=== PATIENT | male | born 1940 | race Caucasian/White ===

== ENCOUNTER 2016-11-28 14:42 | Observation (INO) ==
[2016-11-28 15:08] LABS: Basophils % 0.1 % (0.0-0.8); Eosinophils # 0.2 10*3/uL (0.0-0.87); Eosinophils % 2.8 % (0.00-10.9); Hematocrit 38.4 VOL% (42.0-52.0); Hemoglobin 12.9 GM/DL (14.0-18.0); Immature Granulocytes % 0.5 %; Immature Granulocytes Absolute 0.04 #; Lymphocytes # 2.4 10*3/uL (1.4-4.0); Lymphocytes % 31.6 % (21.2-54.2); Mean Corpuscular HGB Conc 33.6 GM/DL (32-36); Mean Corpuscular Hemoglobin 31 PG (27-34); Mean Corpuscular Volume 93.2 FL (87-102); Mean Platelet Volume 9.3 FL (9.6-12.0); Monocytes # 0.5 10*3/uL (0.11-0.8); Monocytes % 7.1 % (1.7-12.7); Neutrophils # 4.4 10*3/uL (1.4-7.4); Neutrophils % 57.9 % (38.7-73.9); Platelet Count 131 T/CUMM (130-400); Red Blood Count 4.12 MC/CUMM (3.8-5.5); White Blood Count 7.5 T/CUMM (4-12)
[2016-11-28 15:22] LABS: INR 1.1; PT Patient Result 11.9 SECS; Partial Thromboplastin Time 28.9 SECS (0-40)
[2016-11-28 15:29] LABS: Albumin 3.7 G/DL (3.4-5.0); Bilirubin,Total 0.8 MG/DL (0.2-1.0); Calcium 8.8 MG/DL (8.5-10.1); Magnesium 2.4 MG/DL (1.8-2.4); Potassium 4.1 MMOL/L (3.5-5.1); Total Protein 6.9 G/DL (6.4-8.3)
--- NOTE | 2016-11-28 16:10 | XRay Report ---
Exam: Chest 2 views Date: November 28, 2016 at 3:41 PM Comparison: Chest 2 views September 21, 2016, CT chest August 13, 2016 Reason: Chest pain Findings: The cardiac silhouette is again enlarged. There are a few calcified granulomas and minimal scarring within both lungs. Please see the previous CT chest study for further details. No focal consolidation, pneumothorax or pleural effusion is identified. No acute osseous process is seen. Impression: 1. Cardiomegaly. 2. No acute pulmonary process is identified. PROCEDURE INTERPRETED AT [facility] Final Report Signed by: Dr. Shweta Barksdale
[2016-11-28] MEDS ORDERED: ASPIRIN 325 MG TABLET PO STA (16:19)
[2016-11-28] MEDS ORDERED: NITROGLYCERIN SL 0.4 MG TABLET SL PRN (16:19)
[2016-11-28] MEDS ORDERED: ENOXAPARIN 100 MG/ML SYRINGE SUBCUT STA (16:19)
[2016-11-28] MEDS ORDERED: ENOXAPARIN 100 MG/ML SYRINGE SUBCUT ONE (16:21)
--- NOTE | 2016-11-28 16:37 | Emergency Department Note ---
Clifton Rivas Gwan, am scribing for, and in the presence of, Rj Schmidt MD 16:27. Brayan Rivas Phillip K, MD, personally performed the services described in this documentation, ascribed by Funmilayo Lazo in my presence, and it is both accurate and complete [id number] . Arrival - Arrival Chief Complaint: Chest Pain Stated Complaint: chest pain ED Nursing Triage Note: Pt c/o Chest pain with SOB started at 0500 this am. He took 2 NTG with relief but the pain has started coming back. Mode of Arrival: Wheelchair Limitations: No Limitations Source: Patient, Old Records Reviewed, RN Notes Reviewed Time Seen by Provider: 11/28/16 16:11 - History of Present Illness HPI Narrative: Patient is a 76 y/o whit male who presents to the ED with a c/o sharp left sided chest pain and SOB with an onset 0500 this morning. He noted that this pain is worse than the pain he has had in the past with previous heart problems. Patient stated that this pain woke him up form sleep and he administered on NTG with no relief. He continued to note that he waited 15 minutes and took another NTG with significant relief. He confirmed that he is being followed by Dr. Barajas, that his last stent was placed 04/2016 and that he was last seen in office 08/2016 with negative results. He denies N/V or any hx of blood clots. During exam, pt stated that he is not having any chest pain. Onset (ago): hour(s) Consistency: constant Severity: moderate Allergies/Adverse Reactions: Allergies Allergy/AdvReac Type Severity Reaction Status Date / Time No Known Allergies Allergy Verified 10/31/14 17:06 Home Medications: Home Medications Medication Instructions Recorded Confirmed Type Aspirin EC Tab 81 mg PO DAILY 10/31/14 11/28/16 History Nitroglycerin Sl Tab [Nitrostat] 0.4 mg SL Q5M 10/31/14 11/28/16 History Furosemide 40 mg PO BID #60 tablet 11/02/14 11/28/16 Rx Clopidogrel [Plavix] 75 mg PO DAILY 05/03/16 11/28/16 History Insulin Degludec [Tresiba 50 unit SUBCUT BEDTIME 05/03/16 11/28/16 History Flextouch U-100] Liraglutide [Victoza 2-Ben] 1.8 mg SUBCUT DAILY 05/03/16 11/28/16 History Losartan [Cozaar] 50 mg PO DAILY #30 tablet 05/09/16 11/28/16 Rx Ranolazine [Ranexa] 500 mg PO BID #60 tablet 05/09/16 11/28/16 Rx Rosuvastatin [Crestor] 20 mg PO BEDTIME #30 tablet 05/09/16 11/28/16 Rx Carvedilol [Coreg] 3.125 mg PO BID 11/28/16 11/28/16 History Insulin Aspart [NovoLOG] 15 unit SUBCUT BID 11/28/16 11/28/16 History Isosorbide Mononitrate [Isosorbide 60 mg PO QAM 11/28/16 11/28/16 History Mononitrate ER] Review of System - Review of System 12 point system: reviewed and no additional remarkable complaints except as stated - Review of System Constitutional: Absent: chills, fever Eyes: Absent: discharge Head/Ears/Nose/Throat: Absent: earache Respiratory: Present: as per HPI, other (shortness of breathe ). Absent: cough Cardiovascular: Present: as per HPI, chest pain Gastrointestinal: Absent: abdominal pain, nausea, vomiting, diarrhea Genitourinary male: Absent: urgency, dysuria Musculoskeletal: Absent: arm pain, back pain, lower back pain, leg pain Skin: Absent: rash, lesions Neurological: Absent: headache, weakness Medical,Surgical,& Family Hx - Medical History Cardio: History of: CHF, CAD (PCI for CADz and ISR most recently on 04/2016), Hypertension, [place] HEENT: History of: Eye Problem Endocrine: History of: Diabetes Mellitus (IDDM), Diabetes Mellitus (NIDDM) - Surgical History Cardiac Surgeries: Sugical HX of: Cardiac Catheterization (with stenting in 2004 , 2008, 2013 and 04/2016) HEENT Surgeries: Surgical HX of: Tonsilectomy & Adenoidectomy Patient denies: Eye Surgery Abdominal Surgeries: Surgical HX of: Abdominal Surgery, Appendectomy Reproductive Surgeries: Patient denies;: Genitourinary Surgery - Family History Family History: Reports;: Family Cancer (sister leukemia), Family Diabetes ( mother), Family Heart Disease (mother of a myocardial infarction at 66 he had 2 brothers of mci) - Social History Smoking Status: Never smoker Exam Vital Signs: Vital Signs Temperature 98 F 11/28/16 16:16 Pulse Rate 61 11/28/16 16:16 Respiratory Rate 22 11/28/16 16:16 Blood Pressure 128/63 11/28/16 16:16 O2 Sat by Pulse Oximetry 98 11/28/16 16:16 - General General appearance: alert, in no apparent distress - Head Head exam: Present: atraumatic, normocephalic - Eye Eye exam: Present: normal appearance, PERRL, EOMI - ENT ENT exam: Present: normal oropharynx, mucous membranes moist, TM's normal bilaterally, normal external ear exam - Neck Neck exam: Present: full ROM, trachea midline. Absent: tenderness - Chest Chest inspection: Present: symmetric chest wall rise. Absent: tenderness - Respiratory Respiratory exam: Present: normal lung sounds bilaterally. Absent: respiratory distress - Cardiovascular Cardiovascular exam: Present: regular rate, irregular rhythm - Abdominal Exam Abdominal exam: Present: soft, normal bowel sounds. Absent: distention, tenderness - Extremities Exam Extremities exam: Present: full ROM. Absent: tenderness - Back Exam Back exam: Present: full ROM. Absent: tenderness - Neurological Exam Neurological exam: Present: alert, oriented X3, CN II-XII intact. Absent: motor sensory deficit - Psychiatric Psychiatric exam: Present: normal affect, normal mood - Skin Skin exam: Present: warm, dry, intact, normal color Course Course Narrative: Patient discussed with Dr. Garcia. Results - Labs CBC & BMP: 11/28/16 14:54 11/28/16 14:54 Lab Results: I have reviewed the patients labs Labs: Laboratory Tests 05/07/16 05/07/16 05/07/16 12:17 12:17 12:17 WBC RBC Hgb Hct Plt Count MPV INR 1.4 PT Patient/Control Mix 14.7 D Circ Anticoag PTT Sodium 140 Potassium 3.7 Chloride 105 Carbon Dioxide 25 BUN 31 H Creatinine 1.80 H Glucose 132 H Calcium 8.4 L AST 42 H ALT 62 H Troponin I B-Natriuretic Peptide 620 H Globulin 4.1 H Albumin/Globulin Ratio 0.8 L 05/07/16 11/28/16 11/28/16 12:17 14:54 14:54 WBC RBC Hgb Hct Plt Count MPV INR 1.1 PT Patient/Control Mix 11.9 Circ Anticoag PTT 28.9 Sodium 143 Potassium 4.1 Chloride 106 Carbon Dioxide 28 BUN 35 H Creatinine 1.70 H Glucose 209 H Calcium AST ALT Troponin I 0.280 H D B-Natriuretic Peptide Globulin Albumin/Globulin Ratio 11/28/16 11/28/16 14:54 14:54 WBC 7.5 RBC 4.12 Hgb 12.9 L Hct 38.4 L Plt Count 131 MPV 9.3 L INR PT Patient/Control Mix Circ Anticoag PTT Sodium Potassium Chloride Carbon Dioxide BUN Creatinine Glucose Calcium AST ALT Troponin I B-Natriuretic Peptide 373 H Globulin Albumin/Globulin Ratio Disposition Clinical Impression: Chest pain, Possible unstable angina Case discussed with: patient, patient's family Disposition: Still a Patient Condition: Guarded Additional Instructions: Admit to Dr. Garcia for further workup
--- NOTE | 2016-11-28 17:11 | Cardiology History & Physical ---
Assessment and Plan - Time spent with patient Time spent with patient: Greater than 30 minutes (due to assessment, plan, and documentation) (1) Chest pain Status: Acute Current Visit: Yes (2) Coronary artery disease Status: Chronic Current Visit: No Qualifiers: Coronary Disease-Associated Artery/Lesion type: bent[place] artery Associated angina: without angina (3) Ischemic cardiomyopathy Status: Chronic Current Visit: No (4) Paroxysmal atrial fibrillation Status: Chronic Current Visit: Yes (5) Hypertension Status: Chronic Current Visit: Yes (6) Diabetes mellitus Status: Chronic Current Visit: No Qualifiers: Diabetes mellitus type: type 2 Diabetes mellitus complication status: with kidney complications Diabetes mellitus complication detail: with chronic kidney disease Chronic kidney disease stage: stage 2 (mild) (7) Dyslipidemia Status: Chronic Current Visit: No (8) Obesity (BMI 30.0-34.9) Status: Chronic Current Visit: No (9) Chronic kidney disease Status: Chronic Current Visit: Yes (10) Family history of premature CAD Status: Chronic Current Visit: Yes History of Present Illness Chief complaint: chest pain History of present illness: TICKET COUNTER: DR. CASTELAN PCP: PAYTON OCAMPO PATIENT IS BEING SEEN IN THE EMERGENCY ROOM, ROOM #4. Mr. Patel is a 76 year old male with a known history of diffuse small vessel coronary artery disease, paroxysmal atrial fibrillation, hypertension, diabetes, dyslipidemia, obesity, chronic kidney disease. He also has a family history of premature CAD. He has a history of ischemic cardiomyopathy with an EF of approximately 30% which he has declined ICD for primary prophylaxis in the past. He also has a history of nonrheumatic aortic valve insufficiency, left ventricular hypertrophy. He was recently admitted to the hospital September 19, 2016 with progressive shortness of breath and underwent left heart catheterization which revealed previously deployed stents in the LAD which were unchanged from April 2016. Transthoracic echocardiogram done September 19, 2016 revealed EF 30%, moderate LVH, mild MR, moderate TR, moderate biatrial enlargement, pulmonary hypertension with PAP 64 mmHg. Mr. García presented to the emergency room today with complaints of chest pain that began when he woke up this morning. He reports that he took nitroglycerin with no relief and waited approximately 10 minutes and took a second nitroglycerin which completely relieved his pain. He reports after that he was so tired he took a 3 hour nap. He said when he woke up, he started having pain again around 1330. This pain lasted for 20-30 minutes before going away on its own. He had some associated shortness of breath with his episode of chest pain. He tells me he has some chronic shortness of breath but that it was worse today. He also tells me that the pain that he had today was the same type of pain in the same location as the pain that he has had previously but felt worse. He describes this pain as being sharp in nature and localized to the left chest wall beneath the left breast. It is nonreproducible. ASSESSMENT/PLAN: 1. CHEST PAIN -will admit patient to the telemetry floor for monitoring. His home medications will be continued, will increase his home dose of beta- lizeth. Initial troponin is negative and EKG is unchanged from previous. Will continue to cycle cardiac biomarkers and follow trend. We will hold him n.p.o. after midnight in case cardiac catheterization is indicated. 2. CORONARY ARTERY DISEASE -he is status post stent to the mid LAD 05/04/2016. Repeat catheterization on September 20, 2016 revealed mild luminal irregularities in the left main, patent LAD stent, jailed first diagonal has some stenosis of approximately 80% (unchanged from previous), circumflex artery with less than 30 % stenosis, nondominant RCA with 40-50% stenosis of the mid RCA. 3. ISCHEMIC CARDIOMYOPATHY -ejection fraction in August 2016 was noted to be 30% . BNP is 373 upon admission in the setting of chronic kidney disease. He has some mild basilar rales posteriorly but is otherwise well compensated. 4. PAROXYSMAL ATRIAL FIBRILLATION -patient was placed on Eliquis for chronic anticoagulation notes his follow-up visit with Dr. Castelan October 11, 2016 but reports that he believes this medication was causing him to vomit excessively and he stopped this on his own. We will continue his aspirin for stroke prevention. 5. HYPERTENSION - Continue home medications. Will monitor and adjust accordingly. 6. DIABETES - Continue home insulin. Accuchecks ACHS with sliding scale insulin. 7. DYSLIPIDEMIA - Continue lipid lowering agent. Will check lipid panel in AM. 8. OBESITY - Chronic. 9. CHRONIC KIDNEY DISEASE - Creatinine 1.7, up from 1.6 at previous discharge. 10. FAMILY HISTORY OF PREMATURE CAD Dr. Garcia to follow with further plan and addendum. Home Medications Medication Instructions Recorded Confirmed Type Aspirin EC Tab 81 mg PO DAILY 10/31/14 11/28/16 History Nitroglycerin Sl Tab [Nitrostat] 0.4 mg SL Q5M 10/31/14 11/28/16 History Furosemide 40 mg PO BID #60 tablet 11/02/14 11/28/16 Rx Clopidogrel [Plavix] 75 mg PO DAILY 05/03/16 11/28/16 History Insulin Degludec [Tresiba 50 unit SUBCUT BEDTIME 05/03/16 11/28/16 History Flextouch U-100] Liraglutide [Victoza 2-Ben] 1.8 mg SUBCUT DAILY 05/03/16 11/28/16 History Losartan [Cozaar] 50 mg PO DAILY #30 tablet 05/09/16 11/28/16 Rx Ranolazine [Ranexa] 500 mg PO BID #60 tablet 05/09/16 11/28/16 Rx Rosuvastatin [Crestor] 20 mg PO BEDTIME #30 tablet 05/09/16 11/28/16 Rx Carvedilol [Coreg] 3.125 mg PO BID 11/28/16 11/28/16 History Insulin Aspart [NovoLOG] 15 unit SUBCUT BID 11/28/16 11/28/16 History Isosorbide Mononitrate [Isosorbide 60 mg PO QAM 11/28/16 11/28/16 History Mononitrate ER] Allergies Allergy/AdvReac Type Severity Reaction Status Date / Time No Known Allergies Allergy Verified 10/31/14 17:06 Review of systems: - Constitutional: Present: fatigue, As per HPI. Absent: anorexia, chills, daytime sleepiness, excessive sweating, fever(s), frequent falls, headache(s), increased appetite, lethargy, malaise, night sweats, stops breathing during sleep, weakness, weight gain, weight loss. - EENT Eyes: Present: As per HPI. Absent: blurry vision, diplopia, loss of vision Ears: Present: As per HPI. Absent: decreased hearing, ear discharge, ear pain Nose, mouth and throat: Present: As per HPI. Absent: dysphagia, epistaxis, headache(s), hoarseness, lip swelling, nasal congestion, neck mass, neck pain, sinus pressure, sore throat, throat swelling, tongue swelling, vertigo - Cardiovascular: Present: chest pain at rest, dyspnea, dyspnea on exertion, as per HPI. Absent: chest pain with activity, edema, claudication, diaphoresis, radiating jaw, neck or arm pain, lightheadedness, orthopnea, palpitations, PND - Respiratory: Present: dyspnea, dyspnea on exertion, as per HPI. Absent: cough , hemoptysis, wheezing, snoring, pain on inspiration - Gastrointestinal: Present: As per HPI. Absent: abdominal pain, bloating, change in bowel habits, constipation, diarrhea, heartburn, hematemesis, hematochezia, loose stools, melena, nausea, vomiting - Genitourinary: Present: As per HPI. Absent: difficulty urinating, dysuria, flank pain, hematuria, nocturia, urinary frequency, urinary incontinence - Musculoskeletal: Present: As per HPI. Absent: arthralgias, back pain, joint swelling, limited range of motion, muscle cramps, muscle weakness, myalgias - Neurological: Present: As per HPI. Absent: abnormal gait, abnormal speech, behavioral changes, confusion, convulsions, disequilibrium, dizziness, focal weakness, frequent falls, headache(s), memory loss, numbness, paresthesias, radicular pain, syncope, tremor(s) - Psychiatric: Present: As per HPI. Absent: anxiety, confusion, depression, panic attacks - Endocrine: Present: fatigue, As per HPI. Absent: cold intolerance, heat intolerance, polydipsia, polyphagia - Hematologic/Lymphatic: Present: As per HPI. Absent: easy bleeding, easy bruising, lymphadenopathy Medical,Surgical,& Family Hx - Medical History Cardio: History of: CHF, CAD (PCI for CADz and ISR most recently on 04/2016), Hypertension, [place] HEENT: History of: Eye Problem Endocrine: History of: Diabetes Mellitus (IDDM), Diabetes Mellitus (NIDDM) - Surgical History Cardiac Surgeries: Sugical HX of: Cardiac Catheterization (with stenting in 2004 , 2008, 2013 and 04/2016) HEENT Surgeries: Surgical HX of: Tonsilectomy & Adenoidectomy Patient denies: Eye Surgery Abdominal Surgeries: Surgical HX of: Abdominal Surgery, Appendectomy Reproductive Surgeries: Patient denies;: Genitourinary Surgery - Family History Family History: Reports;: Family Cancer (sister leukemia), Family Diabetes ( mother), Family Heart Disease (mother of a myocardial infarction at 66 he had 2 brothers of mci) - Social History Smoking Status: Never smoker Frequency of Alcohol Use: None Type of Drug Use: None Marital Status: Lives With:: Spouse Functional capacity: independent ambulation Cardiology Physical Exam - Constitutional Vitals: Vital Signs Temp Pulse Resp BP Pulse Ox 98 F 61 22 128/63 98 11/28/16 16:16 11/28/16 16:16 11/28/16 16:16 11/28/16 16:16 11/28/16 16:16 Intake and Output 11/28/16 11/28/16 11/28/16 06:59 14:59 22:59 Other: Weight 205 lb Patient Weight 11/29/16 06:59 Weight 205 lb Exam: General appearance: Pleasant and cooperative. Normal weight, no acute distress. - Head Head exam: Present: normal inspection, normocephalic, atraumatic. Absent: hematoma, laceration - Eye Eye exam: Present: EOMI. Absent: conjunctival injection, nystagmus, periorbital swelling, scleral icterus, laceration to eyelids Pupils: Present: PERRL. Absent: constricted, dilated, fixed, irregular, unequal - ENT ENT exam: Present: normal exam, normal external ear exam - Neck Neck exam: Present: normal inspection. Absent: lymphadenopathy, meningismus, tenderness, thyromegaly - Respiratory Respiratory exam: Present: few bibasilar crackles posteriorly, otherwise clear to auscultation bilaterally. Absent: accessory muscle use, chest wall tenderness - Cardiovascular Cardiovascular exam: Present: regular rate and rhythm. Absent: carotid bruit, gallop, JVD, rubs - GI/Abdominal GI/Abdominal exam: Present: normal bowel sounds, soft. Absent: distended, firm , guarding, hernia, mass, tenderness, rebound. - Extremities Exam Extremities exam: Present: normal inspection, normal capillary refill. Upper extremity pulses 2+. Lower extremity pulses 2+. Absent: calf tenderness, edema -Musculoskeletal Exam Musculoskeletal: Present: No Fluid Collection, No Pain, Normal Range of Motion - Back Exam Back exam: Present: normal inspection. Absent: muscle spasm, vertebral tenderness - Neurological Exam Neurological exam: Present: alert, oriented X3, grossly intact without resting or essential tremor - Psychiatric Psychiatric exam: Present: normal affect, normal mood - Skin Skin exam: Present: normal color, warm, dry, intact. Absent: cyanosis, diaphoretic, rash, urticaria Result/EKG - Labs CBC & BMP: 11/28/16 14:54 11/28/16 14:54 Lab Results: I have reviewed the past 24 hour labs Labs: Laboratory Results - last 24 hr 11/28/16 11/28/16 11/28/16 14:54 14:54 14:54 WBC RBC Hgb Hct MCV MCH MCHC RDW Plt Count MPV Neut % (Auto) Lymph % (Auto) [place] % (Auto) Eos % (Auto) Baso % (Auto) Neut # (Auto) Lymph # (Auto) [place] # (Auto) Eos # (Auto) Baso # (Auto) Immature Gran % Nucleated RBC % Immature Gran # Nucleated RBCs # INR 1.1 PT Patient/Control Mix 11.9 Circ Anticoag PTT 28.9 Sodium 143 Potassium 4.1 Chloride 106 Carbon Dioxide 28 Anion Gap 13.1 BUN 35 H Creatinine 1.70 H GFR Calculation 44 BUN/Creatinine Ratio 20.00 Glucose 209 H Calculated Osmolality 298.0 Calcium 8.8 Magnesium 2.4 Total Bilirubin 0.80 AST 18 ALT 24 Alkaline Phosphatase 107 Troponin I B-Natriuretic Peptide 373 H Total Protein 6.9 Albumin 3.7 Globulin 3.2 Albumin/Globulin Ratio 1.1 11/28/16 11/28/16 14:54 14:54 WBC 7.5 RBC 4.12 Hgb 12.9 L Hct 38.4 L MCV 93.2 MCH 31 MCHC 33.6 RDW 15.0 Plt Count 131 MPV 9.3 L Neut % (Auto) 57.9 Lymph % (Auto) 31.6 [place] % (Auto) 7.1 Eos % (Auto) 2.8 Baso % (Auto) 0.1 Neut # (Auto) 4.4 Lymph # (Auto) 2.4 [place] # (Auto) 0.5 Eos # (Auto) 0.2 Baso # (Auto) 0.0 Immature Gran % 0.5 Nucleated RBC % 0.0 Immature Gran # 0.04 Nucleated RBCs # 0.00 INR PT Patient/Control Mix Circ Anticoag PTT Sodium Potassium Chloride Carbon Dioxide Anion Gap BUN Creatinine GFR Calculation BUN/Creatinine Ratio Glucose Calculated Osmolality Calcium Magnesium Total Bilirubin AST ALT Alkaline Phosphatase Troponin I 0.038 B-Natriuretic Peptide Total Protein Albumin Globulin Albumin/Globulin Ratio - EKG EKG results: interpreted by me EKG shows: atrial fibrillation
[2016-11-28] MEDS ORDERED: ACETAMINOPHEN 325 MG TABLET PO PRN (17:41)
[2016-11-28] MEDS ORDERED: DEXTROSE 50% 25 GM/50 ML VIAL IV PRN (17:41)
[2016-11-28] MEDS ORDERED: MAGNESIUM SULF RIDER 2 GM in PREMIX 1 EACH IV PRN (17:41)
[2016-11-28] MEDS ORDERED: MAGNESIUM SULF RIDER 4 GM in PREMIX 1 EACH IV PRN (17:41)
[2016-11-28] MEDS ORDERED: ONDANSETRON 4 MG/2 ML VIAL IV PRN (17:41)
[2016-11-28] MEDS ORDERED: GLUCAGON 1 MG VIAL IM PRN (17:41)
[2016-11-28] MEDS ORDERED: clonazePAM 0.5 MG TABLET PO PRN (18:01)
[2016-11-28 18:29] LABS: Hematocrit 36.6 VOL% (42.0-52.0); Hemoglobin 12.2 GM/DL (14.0-18.0); Lymphocytes % 35.3 % (21.2-54.2); Mean Corpuscular HGB Conc 33.3 GM/DL (32-36); Mean Corpuscular Hemoglobin 31 PG (27-34); Mean Platelet Volume 9.8 FL (9.6-12.0); Neutrophils % 51.9 % (38.7-73.9); Platelet Count 137 T/CUMM (130-400); Red Blood Count 3.98 MC/CUMM (3.8-5.5); Red Cell Distribution Width 14.8 % (9.3-17.3); White Blood Count 7.7 T/CUMM (4-12)
[2016-11-28 18:30] LABS: Basophils % 0.3 % (0.0-0.8); Eosinophils # 0.3 10*3/uL (0.0-0.87); Eosinophils % 3.4 % (0.00-10.9); Immature Granulocytes % 0.4 %; Immature Granulocytes Absolute 0.03 #; Lymphocytes # 2.7 10*3/uL (1.4-4.0); Monocytes # 0.7 10*3/uL (0.11-0.8); Monocytes % 8.7 % (1.7-12.7)
[2016-11-28 18:31] LABS: Calcium 8.6 MG/DL (8.5-10.1); Magnesium 2.4 MG/DL (1.8-2.4); Osmolality,Calculated 291.3 MOS/KG (273-304); Potassium 4.1 MMOL/L (3.5-5.1)
[2016-11-28 18:34] LABS: Troponin I Only 0.035 NG/ML (0.00-0.045)
[2016-11-28] MEDS ORDERED: ROSUVASTATIN 20 MG TABLET PO SCH (21:00)
[2016-11-28] MEDS ORDERED: NON-FORMULARY MEDICATION (Insulin Degludec [Tresiba Flextouch U-100] 50 UNIT) SUBCUT SCH (21:00)
[2016-11-28] MEDS ORDERED: SERTRALINE 25 MG TABLET PO SCH (21:00)
[2016-11-28] MEDS: INSULIN LISPRO 100 UNIT/ML SUBCUT SCH (22:12)
[2016-11-28] MEDS: RANOLAZINE 500 MG TABLET PO SCH (22:13)
[2016-11-28] MEDS: traMADol 50 MG TABLET PO SCH (22:13)
[2016-11-28] MEDS: FUROSEMIDE 40 MG TABLET PO SCH (22:13)
[2016-11-28] MEDS: GABAPENTIN 100 MG CAPSULE PO SCH (22:13)
[2016-11-28] MEDS: CARVEDILOL 3.125 MG TABLET PO SCH (22:14)
[2016-11-29 00:58] LABS: Basophils % 0.3 % (0.0-0.8); Eosinophils # 0.2 10*3/uL (0.0-0.87); Eosinophils % 2.8 % (0.00-10.9); Hematocrit 33.2 VOL% (42.0-52.0); Hemoglobin 11.2 GM/DL (14.0-18.0); Immature Granulocytes % 0.3 %; Immature Granulocytes Absolute 0.02 #; Lymphocytes # 2.3 10*3/uL (1.4-4.0); Lymphocytes % 29.8 % (21.2-54.2); Mean Corpuscular HGB Conc 33.7 GM/DL (32-36); Mean Corpuscular Hemoglobin 31 PG (27-34); Mean Corpuscular Volume 90.7 FL (87-102); Mean Platelet Volume 9.2 FL (9.6-12.0); Monocytes # 0.6 10*3/uL (0.11-0.8); Monocytes % 7.9 % (1.7-12.7); Neutrophils # 4.6 10*3/uL (1.4-7.4); Neutrophils % 58.9 % (38.7-73.9); Platelet Count 122 T/CUMM (130-400); Red Blood Count 3.66 MC/CUMM (3.8-5.5); White Blood Count 7.8 T/CUMM (4-12)
[2016-11-29 01:32] LABS: Calcium 8.5 MG/DL (8.5-10.1); Magnesium 2.1 MG/DL (1.8-2.4); Potassium 3.5 MMOL/L (3.5-5.1)
[2016-11-29 01:38] LABS: Troponin I Only 0.044 NG/ML (0.00-0.045)
--- NOTE | 2016-11-29 04:47 | EKG Report ---
Stationary ECG Study [facility] ER Test Date: 11/28/2016 2:56:07 PM Pat Name: Rolo Patel Department: Room: Gender: M Stores Despatch Hand: : 1940 Requested by: Rj Russell Order Number: [id number] Reading MD: CECE GUZMAN Intervals [place] Rate: 66 P: 999 [place]: 0 QRS: 20 QRSD: 103 T: 122 QT: 424 QTc: 438 Interpretive Statements ATRIAL FIBRILLATION LOW QRS VOLTAGE IN LIMB LEADS ANTEROSEPTAL INFARCT, PROBABLY OLD MINIMAL ST DEPRESSION, PROBABLY DIGITALIS EFFECT Electronically Signed On 11-28-16 17:11:42 CDT by CECE GUZMAN [id number]
--- NOTE | 2016-11-29 05:07 | EKG Report ---
Stationary ECG Study [facility] Test Date: 11/28/2016 5:59:24 PM Pat Name: JEISON MONTE Department: Room: 292 Gender: M Manager Balance: NICHELLE : 1940 Requested by: Rj Russell Order Number: [id number] Reading MD: KAMERON FUENTES Intervals [place] Rate: 66 P: 999 [place]: 0 QRS: -61 QRSD: 89 T: 152 QT: 415 QTc: 429 Interpretive Statements ATRIAL FIBRILLATION MARKED LEFT AXIS DEVIATION INFERIOR MYOCARDIAL INFARCTION, PROBABLY OLD ANTEROSEPTAL MYOCARDIAL INFARCTION, PROBABLY OLD Electronically Signed On 11-29-16 13:53:07 CDT by KAMERON FUENTES [email or web address]
[2016-11-29 06:31] LABS: Troponin I Only 0.033 NG/ML (0.00-0.045)
[2016-11-29] MEDS ORDERED: LOSARTAN 50 MG TABLET PO SCH (09:00)
[2016-11-29] MEDS ORDERED: CLOPIDOGREL 75 MG TABLET PO SCH (09:00)
[2016-11-29] MEDS ORDERED: ASPIRIN EC 81 MG TABLET PO SCH (09:00)
[2016-11-29] MEDS ORDERED: ENOXAPARIN 100 MG/ML SYRINGE SUBCUT SCH (09:00)
[2016-11-29] MEDS ORDERED: NON-FORMULARY MEDICATION (Liraglutide [Victoza 2-Pak] 1.8 MG) SUBCUT SCH (09:00)
[2016-11-29] MEDS ORDERED: PANTOPRAZOLE 40 MG TABLET PO SCH (09:00)
[2016-11-29] MEDS: FUROSEMIDE 40 MG TABLET PO SCH (09:51)
[2016-11-29] MEDS: INSULIN LISPRO 100 UNIT/ML SUBCUT SCH (09:51)
[2016-11-29] MEDS: CARVEDILOL 3.125 MG TABLET PO SCH (09:51)
[2016-11-29] MEDS: traMADol 50 MG TABLET PO SCH (09:52)
[2016-11-29] MEDS: GABAPENTIN 100 MG CAPSULE PO SCH ×2 (09:52→14:39)
[2016-11-29] MEDS: RANOLAZINE 500 MG TABLET PO SCH (09:52)
--- NOTE | 2016-11-29 11:51 | Discharge Summary ---
Hospital Course - Hospital Course Hospital Course: CONSERVATION COORDINATOR: DR. CASTELAN PCP: PAYTON OCAMPO Mr. Patel is a 76 year old male with a known history of diffuse small vessel coronary artery disease, paroxysmal atrial fibrillation, hypertension, diabetes, dyslipidemia, obesity, chronic kidney disease who presented to the emergency room yesterday afternoon with complaints of chest pain. He had some typical and some atypical features of angina and was admitted to the hospital for observation. He had 4 sets of negative cardiac biomarkers and his EKG was unchanged from previous. He was recently admitted to the hospital September 19, 2016 with progressive shortness of breath and underwent left heart catheterization which revealed previously deployed stents in the LAD which were unchanged from April 2016. Transthoracic echocardiogram done September 19, 2016 revealed EF 30%, moderate LVH, mild MR, moderate TR, moderate biatrial enlargement, pulmonary hypertension with PAP 64 mmHg. He has previously declined ICD placement for primary prophylaxis in the past. He was started on medications for chest wall pain during this hospitalization and he reports he is feeling much better today and is even requesting discharge. He was also started on zoloft for some mild anxiety which we will continue at discharge. He is stable for discharge, but given his history, we will have him follow up in 1 week for an outpatient nuclear stress test then follow up with Dr. Castelan in 2 weeks. At this time, he is felt to have met maximum benefit from hospitalization and will be discharged home in stable condition. - Time spent with patient Time with patient DS: Greater than 30 minutes Diagnosis - Discharge Diagnosis (1) Chest pain Status: Resolved (2) Coronary artery disease Status: Chronic (3) Ischemic cardiomyopathy Status: Chronic (4) Paroxysmal atrial fibrillation Status: Chronic (5) Hypertension Status: Chronic (6) Diabetes mellitus Status: Chronic (7) Dyslipidemia Status: Chronic (8) Obesity (BMI 30.0-34.9) Status: Chronic (9) Chronic kidney disease Status: Chronic (10) Family history of premature CAD Status: Chronic Specialty Discharge - Follow Up or Referrals Follow up with: Lakesha Castelan DO [Physician] - 2 Weeks (Follow up with [facility] for nuclear stress test in 1 week, then follow up with Dr. Castelan 1 week after stress test. ) Discharge Plan - Discharge Data Disposition: Disch To Home/Self Care Condition at Discharge: Stable Discharge Diet: heart healthy Activity: resume usual activities as tolerated Hygiene: no restrictions Weight Bearing at Discharge: full weight bearing Driving: no restrictions Contact your physician if you experience:: fever over 101, Difficulty voiding, Redness or swelling, Nausea/Vomiting, Shortness of breath, Bleeding, pain uncontrolled by pain medications - Discharge Medications [place] Cap/Tab [Neurontin Cap/Tab] 100 mg PO TID #30 capsule Pantoprazole Tab [Protonix Tab] 40 mg PO DAILY #30 tablet Sertraline [Zoloft] 25 mg PO BEDTIME #30 tablet Acetaminophen Tab [Tylenol Tab] 325 mg PO BID tablet traMADol TAB [Ultram] 50 mg PO BID tablet Continue Aspirin EC Tab 81 mg PO DAILY Nitroglycerin Sl Tab [Nitrostat] 0.4 mg SL Q5M Furosemide 40 mg PO BID #60 tablet Clopidogrel [Plavix] 75 mg PO DAILY Liraglutide [Victoza 2-Ben] 1.8 mg SUBCUT DAILY Insulin Degludec [Tresiba Flextouch U-100] 50 unit SUBCUT BEDTIME Losartan [Cozaar] 50 mg PO DAILY #30 tablet Ranolazine [Ranexa] 500 mg PO BID #60 tablet Rosuvastatin [Crestor] 20 mg PO BEDTIME #30 tablet Carvedilol [Coreg] 3.125 mg PO BID Insulin Aspart [NovoLOG] 15 unit SUBCUT BID Isosorbide Mononitrate [Isosorbide Mononitrate ER] 60 mg PO QAM - Follow Up or Referral - Forms/Instructions Additional Discharge Instructions: Please schedule for outpatient nuclear stress test in 1 week at [facility] and follow up with Dr. Castelan 1 week after stress test. Thank you! Exam - Constitutional Vitals: Period Temp Pulse Resp BP Sys/Fernandez Pulse Ox Last 24 Hr 96.4 F-99.2 F 60-87 14-24 117-139/59-72 95-99 Exam: General appearance: Pleasant and cooperative. Normal weight, no acute distress. - Head Head exam: Present: normal inspection, normocephalic, atraumatic. Absent: hematoma, laceration - Eye Eye exam: Present: EOMI. Absent: conjunctival injection, nystagmus, periorbital swelling, scleral icterus, laceration to eyelids Pupils: Present: PERRL. Absent: constricted, dilated, fixed, irregular, unequal - ENT ENT exam: Present: normal exam, normal external ear exam - Neck Neck exam: Present: normal inspection. Absent: lymphadenopathy, meningismus, tenderness, thyromegaly - Respiratory Respiratory exam: Present: clear to auscultation bilaterally. Absent: accessory muscle use, chest wall tenderness - Cardiovascular Cardiovascular exam: Present: regular rate and rhythm. Absent: carotid bruit, gallop, JVD, rubs - GI/Abdominal GI/Abdominal exam: Present: normal bowel sounds, soft. Absent: distended, firm , guarding, hernia, mass, tenderness, rebound. - Extremities Exam Extremities exam: Present: normal inspection, normal capillary refill. Upper extremity pulses 2+. Lower extremity pulses 2+. Absent: calf tenderness, edema -Musculoskeletal Exam Musculoskeletal: Present: No Fluid Collection, No Pain, Normal Range of Motion - Back Exam Back exam: Present: normal inspection. Absent: muscle spasm, vertebral tenderness - Neurological Exam Neurological exam: Present: alert, oriented X3, grossly intact without resting or essential tremor - Psychiatric Psychiatric exam: Present: normal affect, normal mood - Skin Skin exam: Present: normal color, warm, dry, intact. Absent: cyanosis, diaphoretic, rash, urticaria Discharge Results Procedures and tests throughout hospitalization: Pending Orders 11/29/16 12:00 Troponin,CKMB & Ck Total Q6H 11/30/16 04:00 Basic Metabolic Panel w/Mg IN AM Comp Blood Count Auto Diff IN AM Labs on day of discharge: Labs from last 24 hours 11/29/16 11/29/16 11/29/16 07:43 05:46 00:53 WBC RBC Hgb Hct MCV MCH MCHC RDW Plt Count MPV Neut % (Auto) Lymph % (Auto) [place] % (Auto) Eos % (Auto) Baso % (Auto) Neut # (Auto) Lymph # (Auto) [place] # (Auto) Eos # (Auto) Baso # (Auto) Immature Gran % Nucleated RBC % Immature Gran # Nucleated RBCs # INR PT Patient/Control Mix Circ Anticoag PTT Sodium 143 Potassium 3.5 Chloride 107 Carbon Dioxide 26 Anion Gap 13.5 BUN 34 H Creatinine 1.50 H GFR Calculation 52 BUN/Creatinine Ratio 22.00 H Glucose 96 POC Glucose 221 H Calculated Osmolality 292.0 Calcium 8.5 Magnesium 2.1 Total Bilirubin AST ALT Alkaline Phosphatase Total Creatine Kinase 38 L CK-MB (CK-2) < 1.0 Troponin I 0.033 B-Natriuretic Peptide Total Protein Albumin Globulin Albumin/Globulin Ratio 11/29/16 11/29/16 11/28/16 00:53 00:52 21:09 WBC 7.8 RBC 3.66 L Hgb 11.2 L Hct 33.2 L MCV 90.7 MCH 31 MCHC 33.7 RDW 15.0 Plt Count 122 L MPV 9.2 L Neut % (Auto) 58.9 Lymph % (Auto) 29.8 [place] % (Auto) 7.9 Eos % (Auto) 2.8 Baso % (Auto) 0.3 Neut # (Auto) 4.6 Lymph # (Auto) 2.3 [place] # (Auto) 0.6 Eos # (Auto) 0.2 Baso # (Auto) 0.0 Immature Gran % 0.3 Nucleated RBC % 0.0 Immature Gran # 0.02 Nucleated RBCs # 0.00 INR PT Patient/Control Mix Circ Anticoag PTT Sodium Potassium Chloride Carbon Dioxide Anion Gap BUN Creatinine GFR Calculation BUN/Creatinine Ratio Glucose POC Glucose 202 H Calculated Osmolality Calcium Magnesium Total Bilirubin AST ALT Alkaline Phosphatase Total Creatine Kinase 43 CK-MB (CK-2) < 1.0 Troponin I 0.044 B-Natriuretic Peptide Total Protein Albumin Globulin Albumin/Globulin Ratio 11/28/16 11/28/16 11/28/16 17:53 17:53 17:53 WBC 7.7 RBC 3.98 Hgb 12.2 L Hct 36.6 L MCV 92.0 MCH 31 MCHC 33.3 RDW 14.8 Plt Count 137 MPV 9.8 Neut % (Auto) 51.9 Lymph % (Auto) 35.3 [place] % (Auto) 8.7 Eos % (Auto) 3.4 Baso % (Auto) 0.3 Neut # (Auto) 4.0 Lymph # (Auto) 2.7 [place] # (Auto) 0.7 Eos # (Auto) 0.3 Baso # (Auto) 0.0 Immature Gran % 0.4 Nucleated RBC % 0.0 Immature Gran # 0.03 Nucleated RBCs # 0.00 INR PT Patient/Control Mix Circ Anticoag PTT Sodium 141 Potassium 4.1 Chloride 104 Carbon Dioxide 30 Anion Gap 11.1 BUN 36 H Creatinine 1.60 H GFR Calculation 48 BUN/Creatinine Ratio 22.00 H Glucose 148 H POC Glucose Calculated Osmolality 291.3 Calcium 8.6 Magnesium 2.4 Total Bilirubin AST ALT Alkaline Phosphatase Total Creatine Kinase 49 CK-MB (CK-2) < 1.0 Troponin I 0.035 B-Natriuretic Peptide Total Protein Albumin Globulin Albumin/Globulin Ratio 11/28/16 11/28/16 11/28/16 17:51 14:54 14:54 WBC 7.5 RBC 4.12 Hgb 12.9 L Hct 38.4 L MCV 93.2 MCH 31 MCHC 33.6 RDW 15.0 Plt Count 131 MPV 9.3 L Neut % (Auto) 57.9 Lymph % (Auto) 31.6 [place] % (Auto) 7.1 Eos % (Auto) 2.8 Baso % (Auto) 0.1 Neut # (Auto) 4.4 Lymph # (Auto) 2.4 [place] # (Auto) 0.5 Eos # (Auto) 0.2 Baso # (Auto) 0.0 Immature Gran % 0.5 Nucleated RBC % 0.0 Immature Gran # 0.04 Nucleated RBCs # 0.00 INR PT Patient/Control Mix Circ Anticoag PTT Sodium Potassium Chloride Carbon Dioxide Anion Gap BUN Creatinine GFR Calculation BUN/Creatinine Ratio Glucose POC Glucose 156 H Calculated Osmolality Calcium Magnesium Total Bilirubin AST ALT Alkaline Phosphatase Total Creatine Kinase CK-MB (CK-2) Troponin I 0.038 B-Natriuretic Peptide Total Protein Albumin Globulin Albumin/Globulin Ratio 11/28/16 11/28/16 11/28/16 14:54 14:54 14:54 WBC RBC Hgb Hct MCV MCH MCHC RDW Plt Count MPV Neut % (Auto) Lymph % (Auto) [place] % (Auto) Eos % (Auto) Baso % (Auto) Neut # (Auto) Lymph # (Auto) [place] # (Auto) Eos # (Auto) Baso # (Auto) Immature Gran % Nucleated RBC % Immature Gran # Nucleated RBCs # INR 1.1 PT Patient/Control Mix 11.9 Circ Anticoag PTT 28.9 Sodium 143 Potassium 4.1 Chloride 106 Carbon Dioxide 28 Anion Gap 13.1 BUN 35 H Creatinine 1.70 H GFR Calculation 44 BUN/Creatinine Ratio 20.00 Glucose 209 H POC Glucose Calculated Osmolality 298.0 Calcium 8.8 Magnesium 2.4 Total Bilirubin 0.80 AST 18 ALT 24 Alkaline Phosphatase 107 Total Creatine Kinase CK-MB (CK-2) Troponin I B-Natriuretic Peptide 373 H Total Protein 6.9 Albumin 3.7 Globulin 3.2 Albumin/Globulin Ratio 1.1 DS: Provider Date of admission: 11/28/16 16:25 Primary care physician: . No PCP Attending physician on admission: Yuan Garcia MD Discharging clinician: LAYA Granger Expected date of discharge: 11/29/16
[2016-11-29] MEDS ORDERED: ACETAMINOPHEN 325 MG TABLET PO SCH (12:00)
[2016-11-29 12:16] VITALS: BP 122/62
[2016-11-29 12:26] LABS: Troponin I Only 0.034 NG/ML (0.00-0.045)
== END 2016-11-29 16:28 | disposition home or self-care (01) ==
LOC: N.EDINP 14:42 → N.ED 14:42 → N.TELEN 16:50
PROVIDERS: ADMIT Internal Medicine Cardiovascular Disease; ATTEND Internal Medicine Cardiovascular Disease